=== PATIENT | male | born 1985 | race Caucasian/White ===

== ENCOUNTER 2022-11-13 22:43 | Emergency (ER) | payer OTHER, SELFPAY ==
[~2022-11-13] VITALS: Ht 190.5 cm; Wt 90.4 kg
[2022-11-13] MEDS ORDERED: LEXA1TAB2 PO (22:52)
[2022-11-14 02:13] VITALS: BP 130/84
== END 2022-11-14 02:40 | disposition left against medical advice (07) ==
LOC: M ED 22:43
DX: Z53.21 Procedure and treatment not carried out due to patient leaving prior to being seen by health care provider (principal)